=== PATIENT | male | born 1940 | race Caucasian/White ===

== ENCOUNTER 2017-08-30 14:12 | Inpatient (IN) | payer MEDICARE, OTHER ==
[2017-08-30 14:57] LABS: #Eosinphils 0.1 thou/uL (0.0-0.7); #Lymphocytes 3.5 thou/uL (1.20-3.40); #Monocytes 0.7 thou/uL (0.11-0.59); #Neutrophils 11.8 thou/uL (1.40-6.50); %Basophils 0.1 % (0.0-1.0); %Eosinophils 0.6 % (0.0-10.0); %Lymphocytes 21.8 % (21.0-51.0); %Monocytes 4.1 % (0.0-10.0); %Neutrophils 73.4 % (42.0-75.0); Hemoglobin 12.1 g/dL (14.0-18.0); Mean Corpuscular HGB CONC 30.9 g/dL (32.0-36.0); Mean Corpuscular Hemoglobin 30.4 pg (27.0-31.0); Mean Corpuscular Volume 98.6 fl (80.0-94.0); Mean Platelet Volume 8.1 fL (7.4-10.4); Platelet Count 273 thou/uL (130-400); RBC Distribution Width 13.6 % (11.5-14.5); Red Blood Cell (RBC) Count 3.97 mill/uL (4.70-6.10)
[2017-08-30 15:13] LABS: INR-International Normal Ratio 3.1; PTT 43.4 SEC (22.9-36.1); Prothrombin Time 33.4 SEC (12.0-14.7)
[2017-08-30 15:18] LABS: ALT (SGPT) 67 U/L (8-55); AST (SGOT) 60 U/L (5-34); Albumin 2.6 g/dL (3.4-4.8); Alkaline Phosphatase 101 U/L (40-150); Anion Gap 9 mmol/L (10-20); BUN (Urea Nitrogen) 74 mg/dL (8.4-25.7); Bilirubin, Total 0.4 mg/dL (0.2-1.2); Calc. Creatinine Clearance 0 mL/min (70-130); Carbon Dioxide 29 mmol/L (23-31); Chloride 128 mmol/L (98-107); Estimated GFR-MDRD 78; Globulin 3.6 g/dL (2.4-3.5); Glucose 121 mg/dL (83-110); Potassium 3.5 mmol/L (3.5-5.1); Protein, Total 6.2 g/dL (5.8-8.1); Sodium 162 mmol/L (136-145)
--- NOTE | 2017-08-30 15:24 | CT ---
CT BRAIN WITHOUT CONTRAST: Date: 08/30/17 HISTORY: Altered mental status. FINDINGS: No previous exams for comparison. There is ventricular sulcal prominence due to cortical atrophy. There are changes of chronic small ve ssel ischemic disease in the periventricular white matter. No evidence of acute infarct, hemorrhage, midline shift, or abnormal extra-axial fluid collections are seen. The bony calvarium is intact. The visualized paranasal sinuses and mastoid air cells are well aerated. IMPRESSION: No CT evidence of acute intracranial process. POS: [facility]
[2017-08-30 15:35] LABS: Bilirubin Negative (Negative); Blood, Urine Negative (Negative); Clarity CLEAR (Clear); Glucose, Urine (Dipstick) Negative (Negative); Leukocyte Negative (Negative); Nitrite Negative (Negative); Protein, Urine (Dipstick) Trace mg/dL (Neg-Trace); Urobilinogen 0.2 mg/dL (0.2-1.0); pH, Urine 5.5 (5.0-9.0)
--- NOTE | 2017-08-30 16:10 | RAD ---
PORTABLE CHEST ONE VIEW 08/30/17 at 3:49 p.m. HISTORY: Sepsis. FINDINGS/IMPRESSION: The heart size is borderline. There is a small left pleural effusion. No lobar consolidation, eduardo p ulmonary edema or pneumothoraces are seen. No right sided pleural effusions are identified. There are degenerative changes in the spine. There are postop changes in the right proximal humerus. POS: [facility]
[2017-08-30] MEDS ORDERED: Piperacillin/Tazobactam 4.5 GM in Sodium Chloride 0.9% 100 ML IVPB SCH (17:45)
[2017-08-30] MEDS ORDERED: Ondansetron HCl/PF 4 MG/2 ML Vial IVP PRN (19:16)
[2017-08-30] MEDS ORDERED: Sodium Chloride 0.9% 1,000 ML IV SCH (19:16)
[2017-08-30] MEDS ORDERED: Milk Of Magnesia 30 ML UDCUP PO PRN (19:16)
[2017-08-30 19:18] LABS: Lactic Acid 3.4 mmol/L (0.5-2.2)
--- NOTE | 2017-08-30 19:43 | HP ---
DATE OF ADMISSION: 08/30/2017 CHIEF COMPLAINT: Worsening mental status changes with unresponsive state. HISTORY OF PRESENT ILLNESS: This is a 76-year-old very unfortunate male who has a known history of a massive MO 6 months ago, followed by worsening mental status. The patient has a known history of Al zheimer dementia, which is also progressively worsening. He is a resident of a halfway and for the past few months, has been declining in his mental status and has been not eating well and refusin g fluids and hydration. Today, they found the patient was very altered and he was very hypoxic, satu rations in 65 and very lethargic and difficult to wake him up. They brought him to the ER and the tracy was open to getting him on hospice and they did have a discussion with the halfway, but the y refused at that time because of the no long, no short, no poor prognosis diagnosis. The patient wa s seen in the ER. He was completely drowsy and lethargic and was totally dry to the bone. His sodiu m level was 160 and WBC was 16, had low blood pressures of 85/43. The patient received 2 liters of I V fluid boluses and was on third liter of half normal saline. He barely had some urine output and is completely dehydrated and unresponsive. Most of the history is obtained from the patient's daughter and the patient's at the bedside. The patient has a known history of coronary artery disease a s explained above with stents in the heart last year of 2015 following a major MO. He also has a his tory of pulmonary embolism and multiple DVTs in the past. PAST MEDICAL HISTORY: 1. History of coronary artery disease. 2. History of pulmonary embolism. 3. History of multiple DVTs. 4. History of Alzheimer dementia. 5. History of hepatitis C from blood transfusion in the past. 6. History of chronic ascites. PAST SURGICAL HISTORY: 1. Gallbladder. 2. History of tonsillectomy in the past. 3. Coronary artery disease with stents, status post stents in 2016. SOCIAL HISTORY: The patient was a nonsmoker in the past and no history of recent smoking. No histor y of alcohol. No history of illicit drug use. FAMILY HISTORY: Significant for coronary artery disease. REVIEW OF SYSTEMS: Could not be obtained from the patient and most of the review of systems has been obtained from the family at the bedside. ALLERGIES: HEPARIN, stated as allergy. HOME MEDICATIONS: None. PHYSICAL EXAMINATION: VITAL SIGNS: Blood pressures are 85/43, heart rate 110, respiratory rate is 18, saturation is 92% on 4 liters. GENERAL: The patient is moderately built, moderately nourished. He does not appear in acute distres s. He is very lethargic. HEENT: Atraumatic, normocephalic. PERRLA. Extraocular movements were intact. Oral mucosa is dry w ith parched throat. CARDIOVASCULAR: S1, S2 normal. No murmurs, rubs or gallops. LUNGS: Bilateral air entry was equal. No wheezing, no crackles. ABDOMEN: Soft, nontender, no guarding, no rebound tenderness. Bowel sounds normal. MUSCULOSKELETAL: No calf tenderness. No pedal edema. EXTREMITIES: No joint tenderness, no joint swelling. SKIN: No cyanosis, no erythema, no rash, no pallor. NEUROLOGIC: Cranial examination II-XII intact. No focal deficits were noted, but the patient has co ntractures of the lower extremities likely from not using. LABORATORY DATA: WBC 16.2, hemoglobin is 12.1, hematocrit is 39.2, platelets are 273. Sodium is 168, potassium 3.5, chloride is 128, BUN is 75, creatinine 0.94. AST is 60, ALT 67. UA was negative for any urinary tract infection. Chest x-ray was unremarkable. No evidence of any a cute pneumonia or any cardiopulmonary process was noted. ASSESSMENT AND PLAN: 1. Acute severe dehydration. 2. Acute metabolic encephalopathy. 3. Hemoconcentration. 4. History of hepatitis C. 5. History of severe coronary artery disease. PLAN: 1. Plan is to admit this patient for severe dehydration and for IV hydration. The patient has recei michael 2 liters of normal saline. I will continue with half normal saline at 100 mL an hour. The patie nt's family is requesting for hospice care. We will consult hospice at this time and will go with th eir recommendations. The patient has markedly low blood pressures at this time likely from dehydrati on. There is no evidence of sepsis was noted. A lactic acid was normal. Elevated white count is mo st likely from dehydration. There is no other source of infection was noted. We will closely monito r the patient and will keep him comfortable at this time. 2. The patient has a history of coronary artery disease, no evidence of any myocardial infarction. Troponins being normal. The patient is DNR/DNI. We will keep the patient comfortable and treat him with morphine for pain. 3. DVT prophylaxis, sequential compression devices. I spent 75 minutes of this patient.
[2017-08-30] MEDS ORDERED: Sodium Chloride 0.45% 1,000 ML IV SCH (21:15)
[2017-08-30] MEDS: Famotidine/PF 20 mg/2ml Vial SLOW IVP SCH (21:19)
[2017-08-30 22:48] VITALS: BMI 23.5
[2017-08-31] MEDS: Lorazepam 2 MG/ML VIAL SLOW IVP PRN ×2 (02:20→12:44)
[2017-08-31 06:04] LABS: #Eosinphils 0.1 thou/uL (0.0-0.7); #Lymphocytes 2.7 thou/uL (1.20-3.40); #Monocytes 0.6 thou/uL (0.11-0.59); #Neutrophils 9.3 thou/uL (1.40-6.50); %Eosinophils 0.9 % (0.0-10.0); %Lymphocytes 21.1 % (21.0-51.0); %Monocytes 4.5 % (0.0-10.0); %Neutrophils 73.4 % (42.0-75.0); Hemoglobin 11.4 g/dL (14.0-18.0); Mean Corpuscular HGB CONC 30.2 g/dL (32.0-36.0); Mean Corpuscular Hemoglobin 29.4 pg (27.0-31.0); Mean Corpuscular Volume 97.2 fl (80.0-94.0); Mean Platelet Volume 8.4 fL (7.4-10.4); Platelet Count 225 thou/uL (130-400); RBC Distribution Width 13.6 % (11.5-14.5); Red Blood Cell (RBC) Count 3.87 mill/uL (4.70-6.10); White Blood Cell (WBC) Count 12.7 thou/uL (4.8-10.8)
[2017-08-31 06:06] LABS: Anion Gap 13 mmol/L (10-20); BUN (Urea Nitrogen) 43 mg/dL (8.4-25.7); Calc. Creatinine Clearance 97 mL/min (70-130); Carbon Dioxide 21 mmol/L (23-31); Chloride 132 mmol/L (98-107); Estimated GFR-MDRD Greater than 90; Glucose 99 mg/dL (83-110); Potassium 4.5 mmol/L (3.5-5.1); Sodium 161 mmol/L (136-145)
[2017-08-31] MEDS: Dextrose 5% in Water 1,000 ML IV SCH (06:29)
[2017-08-31] MEDS ORDERED: Acetaminophen 650 MG Suppository PR SCH (07:15)
[2017-08-31] MEDS: Famotidine/PF 20 mg/2ml Vial SLOW IVP SCH ×2 (07:48→20:28)
[2017-08-31 08:36] LABS: Osmolality, Serum 341 mOsm/kg (280-295)
[2017-08-31] MEDS: Morphine 5 MG/ML SYRINGE SLOW IVP PRN ×3 (08:56→20:27)
[2017-08-31] MEDS ORDERED: Prevnar 13-Val Conj/PF 0.5 ML SYRINGE IM ONE (09:00)
[2017-08-31] MEDS ORDERED: FLU VACC TS2017-18 (>65YR) 0.5 ML SYRINGE IM ONE (09:00)
--- NOTE | 2017-08-31 10:41 | RAD ---
PORTABLE CHEST 1 VIEW: Date; 08/31/17 Time: 0634 hours HISTORY: Shortness of breath. FINDINGS/IMPRESSION: Comparison made with exam from previous day. The heart size is normal. Aorta is tortuous. Lungs are well expanded with mild infiltrate at the left lower lung. No pneumothoraces or large effusions are seen. POS: [facility]
[2017-08-31] MEDS: Vancomycin HCl 1 GM in Premix Bag 1 BAG IVPB SCH (12:47)
--- NOTE | 2017-08-31 13:18 | PDOC.PN ---
- Subjective Encounter Start Date: 08/31/17 Encounter Start Time: 08:40 Pt was seen chyna followup re; dehydration. Sleepy, barely arousable, not answering questions. Unable to complete ROS. - Objective Resuscitation Status: Resuscitation Status DNR:Do Not Resuscitate MAR Reviewed: Yes Vital Signs & Weight: Vital Signs (12 hours) Temp Pulse Resp BP Pulse Ox 08/31/17 11:50 98.8 F 76 22 H 99/61 96 08/31/17 08:10 100.8 F H 85 24 H 99/61 96 08/31/17 08:00 100.8 F H 85 24 H 96 08/31/17 04:00 99.3 F 81 20 94/56 L 94 L Weight Weight 154 lb 11.2 oz Result Diagrams: 08/31/17 05:51 08/31/17 05:04 Phys Exam - Physical Examination Lethargic Dry mucosae Respiratory: clear to auscultation bilateral Cardiovascular: RRR Gastrointestinal: soft Neurological: moves all 4 limbs Dx/Plan (1) Dehydration Code(s): E86.0 - DEHYDRATION Status: Acute (2) Alzheimer's dementia Code(s): G30.9 - ALZHEIMER'S DISEASE, UNSPECIFIED; F02.80 - DEMENTIA IN OTH DISEASES CLASSD ELSWHR W/O BEHAVRL DISTURB Status: Chronic (3) Hepatitis C Code(s): B19.20 - UNSPECIFIED VIRAL HEPATITIS C WITHOUT HEPATIC COMA Status: Chronic - Plan * . Continue IV fluids. Await palliative care service input.
[2017-08-31 17:33] LABS: Anion Gap 14 mmol/L (10-20); BUN (Urea Nitrogen) 33 mg/dL (8.4-25.7); Calc. Creatinine Clearance 95 mL/min (70-130); Calcium 7.6 mg/dL (7.8-10.44); Carbon Dioxide 20 mmol/L (23-31); Estimated GFR-MDRD Greater than 90; Glucose 79 mg/dL (83-110); Potassium 3.3 mmol/L (3.5-5.1); Sodium 160 mmol/L (136-145)
[2017-08-31 17:44] LABS: Chloride 129 mmol/L (98-107)
[2017-09-01] MEDS: Vancomycin HCl 1 GM in Premix Bag 1 BAG IVPB SCH ×2 (01:26→13:47)
[2017-09-01] MEDS ORDERED: Acetaminophen 650 MG in Premix Bag 1 BAG IVPB SCH (05:00)
[2017-09-01] MEDS: Dextrose 5% in Water 1,000 ML IV SCH (05:02)
[2017-09-01 07:27] VITALS: BP 102/62
[2017-09-01] MEDS ORDERED: Collagenase 250 UNITS/GM Ointment 30 GM TUBE TOP SCH (09:00)
[2017-09-01] MEDS: Morphine 5 MG/ML SYRINGE SLOW IVP PRN ×2 (09:34→15:10)
[2017-09-01] MEDS: Famotidine/PF 20 mg/2ml Vial SLOW IVP SCH (09:36)
[2017-09-01] MEDS ORDERED: Acetaminophen 650 MG Suppository PR PRN (15:14)
[2017-09-01 17:27] VITALS: TEMP 101.4
--- NOTE | 2017-09-01 21:30 | DIS ---
PRIMARY CARE PHYSICIAN: Dr. Dominick Small. DATE OF ADMISSION: 08/30/2017 DATE OF DISCHARGE: 09/01/2017 DISCHARGE DIAGNOSES: 1. Severe dehydration. 2. Hypoxia. 3. Hypotension. SECONDARY DIAGNOSES: Coronary artery disease, history of pulmonary embolism, history of multiple DVT s, Alzheimer's dementia, hepatitis C and chronic ascites. CONDITION OF PATIENT ON THE DAY OF DISCHARGE: I assessed Mr. Culp on the day of discharge. He is nonverbal, not responding to verbal stimuli. Vital signs are stable, although he is needing venturi mask to maintain his oxygen saturation at 93%. S1 and S2 are heard, regular. Lungs are clear to au scultation bilaterally. HOSPITAL COURSE: Mr. Culp is a 76-year-old gentleman who was admitted to [facility] for severe dehydration. He was treated with intravenous fluids: One of his two blood cult ures was positive for coagulase negative Staphylococcus. After discussion with family, they wanted to focus on comfort measures only. He was seen by [facility]. He is being discharged to [facility] for further management. Many thanks for allowing me to participate in your patient's care. Please feel free to contact me wi th any questions or concerns. DISCHARGE DESTINATION: [facility]. TOTAL AMOUNT OF TIME SPENT COORDINATING THIS DISCHARGE: 17 minutes.
--- NOTE | 2017-09-14 17:06 | EKG ---
Test Reason : Blood Pressure : / mmHG Vent. Rate : 075 BPM Atrial Rate : 075 BPM P-R Int : 154 ms QRS Dur : 092 ms QT Int : 408 ms P-R-T Axes : 082 -54 044 degrees QTc Int : 455 ms Sinus rhythm with occasional Premature ventricular complexes Left axis deviation Lateral infarct , age undetermined Inferior-posterior infarct , age undetermined Abnormal ECG Confirmed by MILLY VILLEGAS ([id number]), health editor NANETTE NIELSON ([id number]) on 09/14/2017 5:05:57 PM Referred By: Confirmed By:MILLY VILLEGAS
== END 2017-09-01 17:30 | disposition hospice, inpatient (51) | DRG 640 ==
LOC: ERS 14:12 → T4-B 17:54
PROVIDERS: ADMIT Family Medicine; ATTEND Family Medicine
DX: E86.0 Dehydration (principal); G93.41 Metabolic encephalopathy; E87.0 Hyperosmolality and hypernatremia; I95.9 Hypotension, unspecified; R18.8 Other ascites; G30.9 Alzheimer's disease, unspecified; F02.80 Dementia in other diseases classified elsewhere, unspecified severity, without behavioral disturbance, psychotic disturbance, mood disturbance, and anxiety; I25.10 Atherosclerotic heart disease of native coronary artery without angina pectoris; Z51.5 Encounter for palliative care; Z66 Do not resuscitate; R09.02 Hypoxemia; Z86.711 Personal history of pulmonary embolism; Z86.718 Personal history of other venous thrombosis and embolism; B19.20 Unspecified viral hepatitis C without hepatic coma; I25.2 Old myocardial infarction; Z95.5 Presence of coronary angioplasty implant and graft; Z79.01 Long term (current) use of anticoagulants
CPT/HCPCS: 36415; 36416; 51702; 70450; 71045; 80048; 80053; 81003; 82274; 83605; 83930; 85025; 85610; 85730; 87040; 87086; 87149; 87804; 90471; 90682; 93005; 94760; 96361; 96365; 96374; J2270; A4216; G0008; J0131; J2060; J2543; J3370; J7050; Q2036; S0028